=== PATIENT | female | born 2000 | race Caucasian/White ===

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

== ENCOUNTER 2024-01-14 16:52 | Emergency (ER) | payer SELFPAY ==
[2024-01-14 17:10] VITALS: BP 137/90; PULSE 102; RESP 18; TEMP 98.9; BMI 30.9
[2024-01-14 18:33] LABS: BASO % 0.2 % (0-2.0); EOS % 0.2 % (0-4.5); HEMATOCRIT 39.8 % (32.4-45.2); HEMOGLOBIN 13.5 GM/dL (10.7-15.3); LYMPH % 28.1 % (8-40); MCH 29.4 pg (25.7-33.7); MCHC 33.8 g/dl (32.0-36.0); MEAN PLT VOLUME 8.4 fl (7.5-11.1); MONO % 7.5 % (3.8-10.2); PLATELET COUNT 279 10^3/uL (134-434); RBC 4.58 M/mm3 (3.60-5.2); RDW 13.1 % (11.6-15.6); WHITE BLOOD COUNT 8.9 K/mm3 (4.0-10.0)
[2024-01-14 18:47] LABS: EPI CELLS >36 /uL (0-25.1); HCG,QUALITATIVE URINE Negative; HYALINE CASTS 0 /uL (0-3.1); URINE APPEARANCE CLOUDY; URINE BACTERIA 1418 /uL (0-1359); URINE BILIRUBIN NEGATIVE (NEGATIVE); URINE COLOR YELLOW; URINE GLUCOSE (UA) NEGATIVE (NEGATIVE); URINE KETONE 4+ (NEGATIVE); URINE LEUK ESTERASE TRACE (NEGATIVE); URINE NITRITE NEGATIVE (NEGATIVE); URINE PROTEIN NEGATIVE (NEGATIVE); URINE RBC 18 /uL (0-23.9); URINE UROBILINOGEN 0.2 mg/dL (0.2-1.0); URINE WBC 75 /uL (0-25.8)
[2024-01-14 18:56] LABS: POTASSIUM 4.1 mmol/L (3.5-5.1)
[2024-01-14 18:58] LABS: CALCIUM 9.5 mg/dL (8.5-10.1)
[2024-01-14 18:59] LABS: ALBUMIN 4.6 g/dl (3.4-5.0); BLOOD UREA NITROGEN 4.8 mg/dL (7-18)
[2024-01-14 19:02] LABS: CREATININE 0.6 mg/dL (0.55-1.3)
[2024-01-14 19:03] LABS: TOT PROT 8.4 g/dl (6.4-8.2)
[2024-01-14 19:04] LABS: BILIRUBIN,TOTAL 0.8 mg/dL (0.2-1)
== END 2024-01-14 19:48 | disposition home or self-care (01) ==
LOC: JERFT 16:52
DX: R07.9 Chest pain, unspecified (principal)
CPT/HCPCS: 36415; 71046-TC-FY; 80053; 81003; 84443; 84484; 84703; 85025; 93005; 93010; 99285-25